=== PATIENT | male | born 1950 | race Caucasian/White ===

== ENCOUNTER 2021-03-24 08:09 | Emergency (ER) | payer MEDICARE ==
[~2021-03-24] VITALS: Ht 167.6 cm; Wt 84.1 kg
[2021-03-24] MEDS ORDERED: ASPIRIN 325 MG TABLET PO ONE (08:30)
[2021-03-24] MEDS ORDERED: NITROGLYCERIN 0.4 MG SUBLINGUAL TABLET #25 SL ONE (08:30)
[2021-03-24 08:31] LABS: BASOPHILS % (AUTO) 0.3 % (0.0-2.0); EOSINOPHILS % (AUTO) 0 % (1.0-6.0); HEMATOCRIT 40.8 % (41-53); HEMOGLOBIN 13.6 g/dL (13.5-17.5); LYMPHOCYTES # (AUTO) 0.9 K/uL (1.0-4.8); LYMPHOCYTES % (AUTO) 6.5 % (22.0-44.0); MEAN CORPUSCULAR HEMOGLOBIN 31.4 pg (26.0-34.0); MEAN CORPUSCULAR HGB CONC 33.3 G/dL (31.0-37.0); MEAN CORPUSCULAR VOLUME 94 fL (80-100); MONOCYTES # (AUTO) 1.5 K/uL (0.1-1.0); MONOCYTES % (AUTO) 10.6 % (2.0-9.0); NEUTROPHILS # (AUTO) 11.4 K/uL (1.8-7.7); NEUTROPHILS % (AUTO) 82.6 % (40.0-70.0); PLATELET COUNT (AUTO) 132 K/uL (150-450); RED BLOOD CELL COUNT(AUTO) 4.32 MIL/uL (4.50-5.90); RED CELL DISTRIBUTION WIDTH 13.9 % (11.5-14.5)
[2021-03-24 08:40] LABS: COVID AG,FIA SOURCE NASOPHARYNGEAL
[2021-03-24 08:41] VITALS: BP 137/62
[2021-03-24 08:42] LABS: CREATININE 1.85 mg/dL (0.60-1.30); POTASSIUM 4.7 mmol/L (3.5-5.1)
[2021-03-24] MEDS ORDERED: ATORVASTATIN CALCIUM 40 MG TABLET PO ONE (08:45)
[2021-03-24] MEDS ORDERED: HEPARIN SODIUM,PORCINE 5,000 UNITS/ML VIAL IVP ONE (08:45)
[2021-03-24 09:07] LABS: ALBUMIN 3.6 g/dL (3.4-5.0); MAGNESIUM 2.3 mg/dL (1.80-2.40); TOTAL PROTEIN, SERUM 7.6 g/dL (6.4-8.2)
== END 2021-03-24 08:54 | disposition short-term general hospital (02) ==
LOC: EMS 08:15
DX: I21.09 ST elevation (STEMI) myocardial infarction involving other coronary artery of anterior wall (principal); E11.9 Type 2 diabetes mellitus without complications; Z20.822 Contact with and (suspected) exposure to COVID-19
CPT/HCPCS: 36415; 71045; 80053; 82550; 83690; 83735; 83880; 84484; 85025; 87426; 93005; 96374; 99285; J1644

== ENCOUNTER 2022-03-30 16:52 | Emergency (ER) | payer MEDICARE ==
[2022-03-30] MEDS ORDERED: METO25 PO (16:59)
[2022-03-30] MEDS ORDERED: DAPA10TA PO (16:59)
[2022-03-30] MEDS ORDERED: TICA60TA PO (16:59)
[2022-03-30] MEDS ORDERED: SEVE800T17 PO (16:59)
[2022-03-30] MEDS ORDERED: FURO80TA3 PO (16:59)
[2022-03-30] MEDS ORDERED: DICL2.5D8 OD (16:59)
[2022-03-30] MEDS ORDERED: ASPI-1450 PO (16:59)
[2022-03-30] MEDS ORDERED: ALLO100T PO (16:59)
[2022-03-30] MEDS ORDERED: BUPIVACAINE HCL/PF 0.25% 10 ML VIAL ID ONE (17:15)
[2022-03-30] MEDS ORDERED: LIDOCAINE 1% 10 ML VIAL ID ONE (17:15)
[2022-03-30] MEDS ORDERED: PERTUSS(ACELL),DIPH,TET VAC/PF 0.5 ML SYRINGE IM. ONE (17:15)
[2022-03-30] MEDS ORDERED: HYDROCODONE/ACETAMINOPHEN 5-325 MG TABLET PO ONE (17:30)
[2022-03-30] MEDS ORDERED: CLINDAMYCIN HCL 150 MG CAPSULE PO ONE (22:00)
[2022-03-30] MEDS ORDERED: CLIN-142 PO (22:10)
[2022-03-30] MEDS ORDERED: TRAM-559 PO (22:37)
== END 2022-03-30 23:08 | disposition home or self-care (01) ==
LOC: EMS 16:56
DX: S62.522A Displaced fracture of distal phalanx of left thumb, initial encounter for closed fracture (principal); S61.112A Laceration without foreign body of left thumb with damage to nail, initial encounter; E11.9 Type 2 diabetes mellitus without complications; I10 Essential (primary) hypertension; W26.9XXA Contact with unspecified sharp object(s), initial encounter; Y93.89 Activity, other specified; Y92.89 Other specified places as the place of occurrence of the external cause; Y99.8 Other external cause status; Z88.0 Allergy status to penicillin
CPT/HCPCS: 99283; 73130; 90715; 90471; J3490 ×2